=== PATIENT | male | born 1935 | race Asian ===

== ENCOUNTER 2018-05-22 14:00 | Emergency (ER) | payer OTHER ==
[~2018-05-22] VITALS: Ht 177.8 cm; Wt 81.6 kg
[~2018-05-22 14:00] MED LIST: ACYCLOVIR800 MG OR; MULTIVITAMIN OR
[2018-05-22 14:07] VITALS: TEMP 97.3
[2018-05-22 14:39] LABS: PLATELET COUNT 175 K/uL (142-355)
[2018-05-22 16:09] VITALS: BP 126/72
== END 2018-05-22 16:09 | disposition home or self-care (01) ==
LOC: ED 14:00
PROVIDERS: Internal Medicine
DX: K59.09 Other constipation (principal); R11.0 Nausea; K94.29 Other complications of gastrostomy
CPT/HCPCS: 74022; 80053; 85027; 96372; 99283; J2405

== ENCOUNTER 2018-05-23 15:19 | Inpatient (IN) | payer OTHER ==
[~2018-05-23] VITALS: Ht 177.8 cm; Wt 78.6 kg
[2018-05-23] VITALS (7 sets, daily range): BP systolic 104–140; BP diastolic 56–73; TEMP 97.5–98.3; Ht 177.8 cm; Wt 78.6 kg
[2018-05-23 18:05] LABS: PLATELET COUNT 204 K/uL (142-355)
[2018-05-23 18:11] LABS: POTASSIUM 3.5 mmol/L (3.6-5.2)
[2018-05-24 04:11] VITALS: BP 128/65; TEMP 98.8
[2018-05-24 05:49] LABS: PLATELET COUNT 159 K/uL (142-355)
[2018-05-24 06:24] LABS: POTASSIUM 3.9 mmol/L (3.6-5.2)
[2018-05-24 08:05] VITALS: BP 132/54; TEMP 98.6
--- NOTE | 2018-05-24 11:17 | NUR ---
1032 DR BUCKNER HERE AT BS FOR CONSULT CONCERNING G TUBE. G TUBE RE-POSTITIONED PER DR BUCKNER. NOTIFY HIM WITH ANY PROBLEMS AND GTUBE CAN BE REPLACED IN AM IF NEEDED. WILL EXPLAIN TO PT AND PT'S DAUGHTER. WILL START SIPS AT THIS TIME. WILL CON'T TO KATHRINTR
[2018-05-24 12:01] VITALS: BP 128/56; TEMP 99.3
[2018-05-24 16:28] VITALS: BP 129/52; TEMP 99.1
[2018-05-24 20:06] VITALS: BP 127/65; TEMP 98.5
[2018-05-25] VITALS: BP 129/60; TEMP 98.7
[2018-05-25 04:14] VITALS: BP 138/69; TEMP 98.8
[2018-05-25 05:42] LABS: PLATELET COUNT 149 K/uL (142-355)
[2018-05-25 05:55] LABS: POTASSIUM 3.5 mmol/L (3.6-5.2)
[2018-05-25 08:21] VITALS: BP 139/55; TEMP 98.4
[2018-05-25 12:01] VITALS: BP 134/62; TEMP 98.5
[2018-05-25 16:15] VITALS: BP 204/188; TEMP 98.3
--- NOTE | 2018-05-25 18:56 | NUR ---
G-TUBE FEEDING STARTED. 400 ML OF ISOSURE 1.5 TRUDY RUNNING AT 295 MLS/HR. NO RESIDUAL FROOM PREVIOUS FEEDING
[2018-05-25 20:10] VITALS: BP 115/62; TEMP 98.6
[2018-05-26 00:05] VITALS: BP 130/60; TEMP 98.4
[2018-05-26 03:56] VITALS: BP 146/67; TEMP 99
[2018-05-26 06:25] LABS: POTASSIUM 3.8 mmol/L (3.6-5.2)
[2018-05-26 06:28] LABS: PLATELET COUNT 135 K/uL (142-355)
[2018-05-26 08:07] VITALS: BP 151/62; TEMP 98.8
--- NOTE | 2018-05-26 08:30 | NUR ---
PT ASSISTED WITH BATH. NO PROBLEMS NOTED.
--- NOTE | 2018-05-26 10:00 | NUR ---
PT TOLERATED 2 CANS OF ISOSOURCE 1.5 TRUDY THROUGH PEG TUBE WELL. (FEEDING RAN THROUGH FEEDING PUMP PER ORDERS) NO PROBLEMS NOTED.
--- NOTE | 2018-05-26 10:00 | NUR ---
ANTIBIOTIC CREAM APPLLIED AND DRESSING CHANGED AROUND PEG TUBE. SLIGHT SEROUS SANGUEINOUS. DRAINAGE NOTED. NO S/S OF INFECTION. WILL CONT TO MONITOR.
--- NOTE | 2018-05-26 12:00 | NUR ---
UA COLLECTED AND SENT TO LAB. URINE RED IN COLOR, NO CLOTS NOTED. AWARE.
[2018-05-26 12:14] VITALS: BP 158/61; TEMP 98.6
[2018-05-26] MEDS ORDERED: DOCU100C10 PEG (16:15)
[2018-05-26 16:22] VITALS: BP 148/64; TEMP 98.6
--- NOTE | 2018-05-26 17:00 | NUR ---
PT TOLERATED 2 CANS OF FEEDING WELL. NO PROBLEMS NOTED.
--- NOTE | 2018-05-26 17:00 | NUR ---
PT BEING D/C'D. PT'S RIDE (DAUGHTER KETTY) WILL BE HERE AROUND 1999 TO TELEHEALTH CASE MANAGER PT.
[2018-05-26 19:59] VITALS: BP 133/62; TEMP 98.5
--- NOTE | 2018-05-26 20:30 | NUR ---
IV D/C WITH TIP INTACT. DISCHARGE INSTRUCTIONS GIVEN TO PT AND DAUGHTER AND BOTH VERBALIZED UNDERSTANDING. PT WAS D/C VIA WHEELCHAIR AT THIS TIME.
[2018-05-28] MEDS ORDERED: NYST100010 EX ×4 (09:00→10:54)
== END 2018-05-26 20:40 | disposition home or self-care (01) | DRG 394 ==
LOC: ED 15:28 → MED/SURG 19:55
PROVIDERS: Family Medicine; ADMIT Emergency Medicine
DX: K94.23 Gastrostomy malfunction (principal); K31.1 Adult hypertrophic pyloric stenosis; Y83.3 Surgical operation with formation of external stoma as the cause of abnormal reaction of the patient, or of later complication, without mention of misadventure at the time of the procedure; Y73.8 Miscellaneous gastroenterology and urology devices associated with adverse incidents, not elsewhere classified; R11.2 Nausea with vomiting, unspecified; E86.0 Dehydration; K59.09 Other constipation
CPT/HCPCS: 36415; 74022; 80053; 85027; 87070; 87076; 87077; 87205; 96360; 96361; 96365; 96366; 99284; J2405; Q9963

== ENCOUNTER 2018-05-29 15:21 | Emergency (ER) | payer OTHER ==
[~2018-05-29] VITALS: Ht 177.8 cm; Wt 78.5 kg
[~2018-05-29 15:21] MED LIST changes: +DOCU100C10 PEG; +NYST100010 EX
[2018-05-29 17:37] LABS: PLATELET COUNT 177 K/uL (142-355)
[2018-05-29 17:44] LABS: POTASSIUM 4.1 mmol/L (3.6-5.2)
[2018-05-29 21:28] VITALS: BP 151/75; TEMP 98.1
== END 2018-05-29 21:30 | disposition short-term general hospital (02) ==
LOC: ED 15:21
DX: J18.9 Pneumonia, unspecified organism (principal)
CPT/HCPCS: 36415; 74022; 80053; 81000; 85027; 99283

== ENCOUNTER 2018-05-29 21:39 | Outpatient (CLI) | payer OTHER | END 2018-05-29 22:13 | disposition short-term general hospital (02) | LOC: AMB 21:39 | DX: J18.9 Pneumonia, unspecified organism (principal) | CPT/HCPCS: A0425; A0427 ==

== ENCOUNTER 2019-05-21 10:21 | Outpatient (CLI) | payer OTHER | END 2019-05-21 10:24 | disposition short-term general hospital (02) | LOC: AMB 10:21 | DX: M25.472 Effusion, left ankle (principal); M25.572 Pain in left ankle and joints of left foot; W19.XXXA Unspecified fall, initial encounter; Y92.018 Other place in single-family (private) house as the place of occurrence of the external cause | CPT/HCPCS: A0425; A0429 ==

== ENCOUNTER 2019-05-21 10:27 | Emergency (ER) | payer OTHER ==
[~2019-05-21] VITALS: Ht 177.8 cm; Wt 78.5 kg
[2019-05-21 10:27] VITALS: TEMP 97.5
[2019-05-21 11:50] VITALS: BP 130/70
== END 2019-05-21 12:00 | disposition home or self-care (01) ==
LOC: ED 10:31
PROC: 2W3RX1Z Immobilization of Left Lower Leg using Splint (ICD-10-PCS; principal; 2019-05-21)
DX: S82.62XA Displaced fracture of lateral malleolus of left fibula, initial encounter for closed fracture (principal); W18.39XA Other fall on same level, initial encounter; Y92.098 Other place in other non-institutional residence as the place of occurrence of the external cause
CPT/HCPCS: 99283

== ENCOUNTER 2019-06-26 12:48 | Outpatient (CLI) | payer OTHER | END 2019-06-26 22:41 | disposition home or self-care (01) | LOC: RAD 12:48 | DX: S82.832A Other fracture of upper and lower end of left fibula, initial encounter for closed fracture (principal) ==

== ENCOUNTER 2021-11-13 16:49 | Outpatient (CLI) | payer OTHER | END 2021-11-13 18:56 | disposition home or self-care (01) | LOC: LAB 16:49 | PROVIDERS: ATTEND Internal Medicine | DX: R35.0 Frequency of micturition (principal) | CPT/HCPCS: 81000 ==

== ENCOUNTER 2022-04-04 08:47 | Emergency (ER) | payer OTHER ==
[~2022-04-04] VITALS: Ht 177.8 cm; Wt 78.5 kg
[2022-04-04 09:39] LABS: PLATELET COUNT 151 K/uL (142-355)
[2022-04-04 09:44] LABS: POTASSIUM 4.9 mmol/L (3.6-5.2)
[2022-04-04 11:42] VITALS: TEMP 98
[2022-04-04 11:46] VITALS: BP 113/73
== END 2022-04-04 12:01 | disposition short-term general hospital (02) ==
LOC: ED 08:47
PROVIDERS: Emergency Medicine Emergency Medical Services
DX: I48.92 Unspecified atrial flutter (principal); Z11.52 Encounter for screening for COVID-19; R07.89 Other chest pain
CPT/HCPCS: 36415; 80053; 83735; 83880; 84484; 85027; 85610; 85730; 87040; 87635; 93005; 96360; 96365; 96366; 96375; 99285; J1644; J3490; U0003

== ENCOUNTER 2022-09-04 09:36 | Outpatient (CLI) | payer OTHER ==
[2022-09-04 10:31] LABS: POTASSIUM 4.5 mmol/L (3.6-5.2)
[2022-09-04 10:34] LABS: PLATELET COUNT 146 K/uL (142-355)
== END 2022-09-04 20:25 | disposition home or self-care (01) ==
LOC: RAD 09:36
PROVIDERS: ATTEND Internal Medicine
DX: R06.02 Shortness of breath (principal); N40.1 Benign prostatic hyperplasia with lower urinary tract symptoms; Z79.899 Other long term (current) drug therapy; J40 Bronchitis, not specified as acute or chronic
CPT/HCPCS: 36415; 80053; 80061; 83880; 84153; 84439; 84443; 85027